=== PATIENT | male | born 1960 ===

== ENCOUNTER 2017-08-05 23:14 | Outpatient (CLI) | payer BC | END 2017-08-05 23:15 | disposition short-term general hospital (02) | LOC: EMS 23:14 | PROVIDERS: ATTEND Surgery | DX: M54.2 Cervicalgia (principal); R51 Headache; W10.9XXA Fall (on) (from) unspecified stairs and steps, initial encounter; Y92.008 Other place in unspecified non-institutional (private) residence as the place of occurrence of the external cause | CPT/HCPCS: A0425; A0427 ==

== ENCOUNTER 2023-06-03 07:27 | Outpatient (CLI) | payer BC ==
[2023-06-03 14:57] LABS: BASOPHILS # (AUTO) 0.1 10^3/uL (0.0-0.1); BASOPHILS % (AUTO) 1.5 %; EOSINOPHILS # (AUTO) 0.4 10^3/uL (0.0-0.7); EOSINOPHILS % (AUTO) 7.7 %; HCT - HEMATOCRIT 45.1 % (42.0-52.0); HGB - HEMOGLOBIN 15.1 g/dL (14.0-18.0); LYMPHOCYTES # (AUTO) 1.9 10^3/uL (1.5-3.5); LYMPHOCYTES % (AUTO) 40.4 %; MEAN CORPUSCULAR HEMOGLOBIN 32.7 pg (27.0-31.0); MEAN CORPUSCULAR HGB CONC 33.5 g/dL (32.0-36.0); MEAN CORPUSCULAR VOLUME 97.6 fL (80.0-94.0); MEAN PLATELET VOLUME 10.6 fL (7.4-11.4); MONOCYTES # (AUTO) 0.6 10^3/uL (0.0-1.0); MONOCYTES % (AUTO) 13.2 %; NEUTROPHILS # (AUTO) 1.7 10^3/uL (1.5-6.6); PLT - PLATELET COUNT 221 10^3/uL (130-450); RED BLOOD COUNT 4.62 10^6/uL (4.70-6.10); RED CELL DISTRIBUTION WIDTH 13.5 % (12.0-15.0); WHITE BLOOD COUNT 4.7 x10^3/uL (4.8-10.8)
[2023-06-03 16:29] LABS: ALBUMIN 4.4 g/dL (3.2-5.5); ALBUMIN/GLOBULIN RATIO 1.8 (1.0-2.2); ALKALINE PHOSPHATASE 57 IU/L (42-121); ALT ALANINE AMINOTRANSFERASE 13 IU/L (10-60); AST ASPARTATE AMINOTRANSFERASE 17 IU/L (10-42); BILIRUBIN,TOTAL 0.5 mg/dL (0.2-1.0); BUN - BLOOD UREA NITROGEN 18 mg/dL (6-20); CALCIUM 9.6 mg/dL (8.5-10.3); CARBON DIOXIDE - CO2 28 mmol/L (21-32); CHLORIDE 105 mmol/L (101-111); CHOL/HDL RATIO 2.9 (<5.0); CHOLESTEROL 202 mg/dL; CREATININE 0.9 mg/dL (0.6-1.3); GFR - MDRD 86 (>89); GLUCOSE 93 mg/dL (74-104); HDL CHOLESTEROL 69 mg/dL; LDL CHOLESTEROL,CALCULATED 102 mg/dL; LDL/HDL RATIO 1.5 (<3.6); POTASSIUM 4.3 mmol/L (3.5-4.5); SODIUM 139 mmol/L (135-145); TOTAL PROTEIN 6.9 g/dL (6.4-8.9); TRIGLYCERIDES 155 mg/dL (48-352); VLDL CHOLESTEROL 31 mg/dL
== END 2023-06-03 07:28 | disposition home or self-care (01) ==
LOC: LAB.S 07:27
PROVIDERS: ATTEND Physician Assistant Medical
DX: Z00.00 Encounter for general adult medical examination without abnormal findings (principal); R03.0 Elevated blood-pressure reading, without diagnosis of hypertension
CPT/HCPCS: 36415; 80053; 80061; 83721; 84153; 85025

== ENCOUNTER 2024-01-16 08:00 | Outpatient (CLI) | payer BC ==
--- NOTE | 2024-01-16 17:33 | XRAY Report ---
PROCEDURE: Cervical Spine 4-5V INDICATIONS: PARESTHESIA OF LEFT UPPER LIMB/DENS FX TECHNIQUE: 5 views of the cervical spine acquired. COMPARISON: None. FINDINGS: Bones: No fractures or dislocations to the T1 level. Oblique images demonstrate no bony foraminal s tenoses. Moderate disc height loss at C5-6, C6-7. Mild disc height loss at remaining levels. Diffuse facet arthrosis. Soft tissues: No prevertebral soft tissue swelling. IMPRESSION: No displaced dens fracture. Mild to moderate, multilevel degenerative disc disease and diffuse facet arthrosis. Reviewed by: Talat Lewis MD on 01/16/2024 5:31 PM PDT Approved by: Talat Lewis MD on 01/16/2024 5:31 PM PDT Station ID: [id number]
== END 2024-01-16 23:59 | disposition home or self-care (01) ==
LOC: DI.S 08:00
PROVIDERS: ATTEND Physician Assistant Medical
DX: R20.2 Paresthesia of skin (principal); S12.1 Fracture of second cervical vertebra; M47.812 Spondylosis without myelopathy or radiculopathy, cervical region; M50.322 Other cervical disc degeneration at C5-C6 level

== ENCOUNTER 2024-01-24 08:16 | Outpatient (CLI) | payer BC ==
--- NOTE | 2024-01-26 14:11 | MRI Report ---
PROCEDURE: Cervical Spine WO INDICATIONS: PARESTHESIA TECHNIQUE: Multiplanar multisequential MRI of the cervical spine was obtained without contrast. COMPARISON: None. FINDINGS: Alignment and Curvature: There is normal bony alignment. Bone Marrow: Marrow demonstrates normal overall signal. Spinal Cord: Visualized spinal cord has normal size and signal. No cerebellar tonsillar herniation. Paraspinal Soft Tissues: No paravertebral masses. Prevertebral soft tissues are normal in thickness . C2-C3: Normal in appearance. C3-C4: Posterior disc osteophyte complex results in mild to moderate central stenosis. Arthropathy. Severe left and moderate right foraminal stenosis. C4-C5: Posterior disc osteophyte complex. Mild central stenosis. Left-sided arthropathy. Moderate le ft and no right foraminal stenosis. C5-C6: Posterior disc osteophyte complexes. Moderate central stenosis with flattening the ventral co rd. Arthropathy. Moderate right and moderate left foraminal stenosis. C6-C7: Posterior disc osteophyte complex. Mild to moderate central stenosis. Arthropathy. Moderate l eft and right foraminal stenosis C7-T1: No central or foraminal stenosis IMPRESSION: Multilevel degenerative disc disease and arthropathy results in varying degrees of central and forami nal stenosis including moderate central and foraminal stenosis C5-6 Reviewed by: Jed Gonzalez MD on 01/26/2024 1:10 PM [facility] Approved by: Jed Gonzalez MD on 01/26/2024 1:10 PM MIS[facility] Station ID: [id number]
== END 2024-01-24 08:17 | disposition home or self-care (01) ==
LOC: DI 08:16
PROVIDERS: ATTEND Physician Assistant Medical
DX: R20.2 Paresthesia of skin (principal); S12.1 Fracture of second cervical vertebra; M50.31 Other cervical disc degeneration, high cervical region; M48.02 Spinal stenosis, cervical region; M47.812 Spondylosis without myelopathy or radiculopathy, cervical region